=== PATIENT | female | born 1940 | race Caucasian/White ===

== ENCOUNTER 2017-06-03 19:48 | Emergency (ER) | payer MEDICARE ==
[~2017-06-03] VITALS: Ht 162.6 cm; Wt 88.9 kg
[~2017-06-03 19:48] MED LIST: ADALAT CC PO; ALBUTEROL17 GM INH; ATIVAN0.5 MG PO; EXCEDRIN MIGRAI1 TA1 PO; FLEXERIL PO; FOSAMAX PO; INDOCIN SR75 MG PO; IRON325 ( 651 PO; KROGER PHARMACY; LISINOPRIL-HCTZ1 T14; LISINOPRIL-HCTZ1 T14 PO; LOSARTAN-HCTZ1 EAC2 PO; MAALOX PO; MAALOX SUSPENSI30 ML PO; MEVACOR PO; NORCO 5/325 TAB1 TAB PO; OMEPRAZOLE40 MG PO; OYSTER CALCIUM500 MG PO; PRILOSEC PO; PROPRANOLOL PO; ZESTORETIC 20/11 TAB PO; ZESTORETIC 20/21 TAB PO; [UNRECOGNIZED DRUG - OTHER] PO
== END 2017-06-03 21:30 | disposition home or self-care (01) ==
LOC: CED 19:48 → CFTX 19:48
DX: I83.91 Asymptomatic varicose veins of right lower extremity (principal); K21.9 Gastro-esophageal reflux disease without esophagitis; I10 Essential (primary) hypertension; Z88.8 Allergy status to other drugs, medicaments and biological substances
CPT/HCPCS: 12001; 99283